=== PATIENT | female | born 1985 | race Caucasian/White ===

== ENCOUNTER 2018-04-17 10:32 | Emergency (ER) | payer OTHER ==
[~2018-04-17] VITALS: Ht 157.5 cm; Wt 59.0 kg
[2018-04-17 11:24] VITALS: BP 108/72
== END 2018-04-17 11:53 | disposition home or self-care (01) ==
LOC: FSED 10:32
DX: M54.2 Cervicalgia (principal); M62.838 Other muscle spasm; F32.9 Major depressive disorder, single episode, unspecified
CPT/HCPCS: 99283

== ENCOUNTER 2019-09-14 20:13 | Emergency (ER) | payer OTHER ==
[~2019-09-14] VITALS: Ht 157.5 cm; Wt 49.0 kg
[2019-09-14] MEDS ORDERED: AZITHROMYCIN 250 MG TAB ONE (21:59)
[2019-09-14] MEDS ORDERED: CEFTRIAXONE SOD 500 MG VIAL ONE (21:59)
[2019-09-14] MEDS: CEFTRIAXONE SOD 250 MG VIAL IM ONE (22:05)
[2019-09-14] MEDS: AZITHROMYCIN 250 MG TAB PO ONE (22:06)
== END 2019-09-14 22:25 | disposition home or self-care (01) ==
LOC: FSED 20:13
DX: A54.5 Gonococcal pharyngitis (principal)
CPT/HCPCS: 87070; 96372; 99283; J0696

== ENCOUNTER 2020-04-15 11:19 | Emergency (ER) | payer OTHER ==
[~2020-04-15] VITALS: Ht 157.5 cm; Wt 50.3 kg
[2020-04-15] MEDS ORDERED: FIORICET 50-301 EACH (12:17)
[2020-04-15] MEDS ORDERED: GABAPENTIN100 MG (12:17)
--- NOTE | 2020-04-15 12:37 | Diagnostic Imaging Report ---
EXAM: CXR 2 VIEW - [facility] DATE: 04/15/2020 12:19 PM INDICATION: Cough, fever, bodyaches COMPARISON: None FINDINGS: The trachea is midline. The lungs are symmetrically expanded without evidence for large focal consolidation, pneumothorax, or significant pleural effusion. The cardiomediastinal silhouette and pulmonary vasculature are within normal limits. No acute osseous abnormality is identified. The surrounding soft tissues are unremarkable. IMPRESSION: No acute cardiopulmonary process identified. Signed by: Dr. Shaq Conway MD on 04/15/2020 12:33 PM
--- NOTE | 2020-04-15 12:50 | Emergency Department Note ---
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 Reports chest tightness on Monday which has resolved and now reports loss of smell and taste yesterday. 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 Historian: Patient Arrival Mode: Car Onset (how long ago): day(s) (1) Location: throat Quality: dull Radiation: Denies non-radiation, Denies back, Denies neck, Denies extremity, Denies abdomen, Denies periumbilical, Denies flank, Denies proximal, Denies distal, Denies other Severity: moderate Onset quality: gradual Duration (how long): day(s) (1) Timing of current episode: constant Progression: worsening Context: Denies recent illness, Denies recent surgery, Denies recent immobilization, Denies recent travel, Denies trauma/injury, Denies new medications, Denies hx of DVT/PE, Denies non-compliance w/ medications, Denies other Relieving factors: none Exacerbating factors: none Associated symptoms: Reports denies other symptoms Treatments prior to arrival: none Past Medical/Family History Physician Review I have reviewed the patient's past medical and family history. Any updates have been documented here. Past Medical History Recent Fever: No Clinical Suspicion of Infectio: No New/Unexplained Change in Ment: No Past Medical History: Migraines Other Medical History: NECK STRAINS IN PAST Past Surgical History: None Other Surgery: BREAST AUGNMENTATION Tonsillectomy Social History Smoking Cessation: Never Smoker Alcohol Use: None Any Illegal Drug Use: No TB Exposure/Symptoms: No Physically hurt or threatened: No Other Last Tetanus: UTD Any Pre-Existing Lines (PICC,: No Is patient up to date on immun: Yes Last Flu: UTD Last Pneumovax: NA Review of Systems Review of Systems Constitutional: Reports fever EENTM: Reports no symptoms Cardiovascular: Reports no symptoms Respiratory: Reports as per HPI, Reports cough Gastrointestinal: Reports no symptoms Genitourinary: Reports no symptoms Musculoskeletal: Reports no symptoms Integumentary: Reports no symptoms Neurological: Reports no symptoms Psychological: Reports no symptoms Endocrine: Reports no symptoms Hematological/Lymphatic: Reports no symptoms Physical Exam Related Data Allergies: Coded Allergies: No Known Allergies (Unverified , 04/17/18) Triage Vital Signs Vital Signs Date Time Temp Pulse Resp B/P (MAP) Pulse Ox O2 Delivery O2 Flow Rate FiO2 04/15/20 11:31 99.8 72 16 130/85 100 Vital signs reviewed: Yes Physical Exam CONSTITUTIONAL Constitutional: Present well-developed, Present well-nourished HENT HENT: Present normocephalic, Present atraumatic, Present oropharynx clear/moist, Present nose normal, Present erythema HENT L/R: Present left ext ear normal, Present right ext ear normal EYES Eyes: Reports PERRL, Reports conjunctivae normal NECK Neck: Present ROM normal PULMONARY Pulmonary: Present effort normal, Present breath sounds normal CARDIOVASCULAR Cardiovascular: Present regular rhythm, Present heart sounds normal, Present capillary refill normal, Present normal rate GASTROINTESTINAL Abdominal: Present soft, Present nontender, Present bowel sounds normal GENITOURINARY Genitourinary: Present exam deferred SKIN Skin: Present warm, Present dry MUSCULOSKELETAL Musculoskeletal: Present ROM normal NEUROLOGICAL Neurological: Present alert, Present oriented x 3, Present no gross motor or sensory deficits PSYCHOLOGICAL Psychological: Present mood/affect normal, Present judgement normal Results Laboratory Lab results reviewed: Yes Imaging Imaging results reviewed: Yes Assessment & Plan Medical Decision Making MDM covid 9 bronchitis Reassessment Reassessment same Assessment & Plan Final Impression: (1) Bronchitis, acute (2) Fever Depart Disposition: HOME, SELF-CARE Last Vital Signs Date Time Temp Pulse Resp B/P (MAP) Pulse Ox O2 Delivery O2 Flow Rate FiO2 04/15/20 11:31 99.8 72 16 130/85 100 Home Meds Reported Medications Gabapentin (GABAPENTIN) 100 Mg Capsule 04/15/20 Butalb/Acetaminophen/Caffeine (Fioricet 50-300-40 mg Capsule) 1 Each Capsule 04/15/20 SALLY YAO MD Apr 15, 2020 12:50
[2020-04-15] MEDS ORDERED: ZITHROMAX250 MG PO (12:54)
--- NOTE | 2020-04-15 13:18 | NUR ---
deborah called for covid transport
--- NOTE | 2020-04-15 13:18 | NUR ---
covid swab done per policy
== END 2020-04-15 13:20 | disposition home or self-care (01) ==
LOC: FSED 11:19
DX: R50.9 Fever, unspecified (principal); R05 Cough; U07.1 COVID-19; J20.9 Acute bronchitis, unspecified
CPT/HCPCS: 71046; 87635; 99284

== ENCOUNTER 2021-12-24 21:16 | Emergency (ER) | payer OTHER ==
[~2021-12-24] VITALS: Ht 157.5 cm; Wt 52.2 kg
[~2021-12-24 21:16] MED LIST: FIORICET 50-301 EACH; GABAPENTIN100 MG; ZITHROMAX250 MG PO
[2021-12-24] MEDS ORDERED: AZITHROMYCIN250 MG PO (21:54)
[2021-12-24] MEDS ORDERED: BENZONATATE200 MG PO (21:54)
[2021-12-24] MEDS ORDERED: THERAFLU FLU &1 EAC1 PO (21:54)
[2021-12-24] MEDS ORDERED: PREDNISONE20 MG PO (21:54)
== END 2021-12-24 22:05 | disposition home or self-care (01) ==
LOC: FSED 21:25
DX: R50.9 Fever, unspecified (principal); J20.9 Acute bronchitis, unspecified; J06.9 Acute upper respiratory infection, unspecified; R05.9 Cough, unspecified
CPT/HCPCS: 99282